=== PATIENT | female | born 1965 | race Caucasian/White ===

== ENCOUNTER 2016-10-14 13:36 | Emergency (ER) | payer OTHER ==
[~2016-10-14] VITALS: Ht 167.6 cm; Wt 65.0 kg
[~2016-10-14 13:36] MED LIST: BCPILLS PO; FEXO180T PO; MELO7.5T7 PO; NSNN50; OLOP0.1S2 OPB; PANT40TA PO; SERT100T PO; SULFACETAMIDE 10% TOP
[2016-10-14 13:42] VITALS: Ht 167.6 cm; Wt 65.0 kg
[2016-10-14] MEDS ORDERED: ONDANSETRON INJ 2 MG/ML 2 ML VIAL ONE (14:02)
[2016-10-14] MEDS ORDERED: ONDANSETRON INJ 2 MG/ML 2 ML VIAL IV STA (14:18)
[2016-10-14] MEDS ORDERED: SODIUM CHLORIDE 0.9% 1000ML 1,000 ML IV STA (14:18)
[2016-10-14 14:23] LABS: BASO % 0.1 %; BASO ABS # 0.01 K/uL (0-0.2); COMPLETE YES; EOS % 0.4 %; HEMATOCRIT 43.2 % (37-47); IG% 0.2 %; LYMPH % 2.3 %; LYMPH ABS # 0.23 K/uL (1.2-3.4); MEAN CELL VOLUME 92.1 fL (80-100); MEAN CORPUSCULAR HEMOGLOBIN 31.8 pg (25-34); MEAN CORPUSCULAR HGB CONC 34.5 g/dl (32-36); MEAN PLATELET VOLUME 8.9 fL (7.4-10.4); MONO % 2.9 %; NEUT % 94.1 %; PLATELET COUNT 163 K/uL (130-400); RED BLOOD COUNT 4.69 M/uL (4.2-5.4)
[2016-10-14 14:44] LABS: BUN/CREATININE RATIO 32.1 (10-20); CALCIUM 8.6 mg/dl (8.5-10.1); CREATININE 0.63 mg/dl (0.60-1.20); POTASSIUM 3.9 mmol/L (3.5-5.1)
[2016-10-14 14:46] LABS: ALB/GLOB RATIO 1.3 (0.9-2)
[2016-10-14] MEDS ORDERED: MAGN400T6 PO (15:00)
[2016-10-14] MEDS ORDERED: KETOROLAC TROMETHAMINE 30 MG/ML VIAL IV STA (15:15)
--- NOTE | 2016-10-14 15:28 | EMERGENCY ROOM VISIT NOTE ---
History Report prepared by Karol: Manuel Gauthier Under the Supervision of: Dr. Ladarius Pantoja D.O. First contact with patient: 14:17 Chief Complaint: VOMITING Stated Complaint: VOMITING, FEVER Nursing Triage Summary: triage note: Pt reports nausea, vomitting, diarrhea and headache. pt reports hx of migraines. History of Present Illness The patient is a 50 year old female who presents to the Emergency Room with complaints of recurrent vomiting that started this morning. The patient also has complaints of nausea, diarrhea, and headaches this morning. She had four episodes of diarrhea in total, and notes that vomiting was her primary complaint. She attributes the headache to dehydration secondary to vomiting. She was given fluids upon arrival to the ED per nursing protocol, and the patient notes that her headache is already improving. She was also given Zofran IV and notes improvement of her nausea. Source of History: patient Onset: this morning Position: other (GI) Quality: other (vomiting) Timing: other (recurrent) Associated Symptoms: + diarrhea, + headache, + nausea Review of Systems See HPI for pertinent positives & negatives. A total of 10 systems reviewed and were otherwise negative. Past Medical & Surgical Medical Problems: (1) Biliary dyskinesia Family History No pertinent family history Social History Smoking Status: Never Smoker Alcohol Use: none Marital Status: Housing Status: lives with family Current/Historical Medications Scheduled Fexofenadine Hcl (Jordana Allergy), 180 MG PO DAILY Meloxicam (Mobic), 7.5 MG PO DAILY PRN Mometasone Furoate (Nasal) (Nasonex), 2 SPRAY NA DAILY Olopatadine Hcl (Patanol 0.1% Oph), 1 DROP OPB DAILY PRN Sertraline Hcl (Zoloft), 200 MG PO QAM [Klaron 10% Ex Lotn], 1 APPLN TOP DAILY Miscellaneous Medications Magnesium Oxide (Mag-Ox), 400 MG PO Allergies Coded Allergies: Latex1 -Allergic Contact Dermititis (Verified Allergy, Mild, RASH, 10/14/16 ) Physical Exam Vital Signs Date Time Temp Pulse Resp B/P Pulse Ox O2 Delivery O2 Flow Rate FiO2 10/14/16 13:42 37.1 106 18 124/79 95 Room Air Physical Exam CONSTITUTIONAL/VITAL SIGNS: Reviewed / noted above. GENERAL: Non-toxic in appearance. INTEGUMENTARY: Warm, dry, and [place]. HEAD: Normocephalic. EYES: without scleral icterus or trauma. ENT/OROPHARYNX: clear and moist. LYMPHADENOPATHY/NECK: Is supple without lymphadenopathy or meningismus. RESPIRATORY: Lungs clear and equal. CARDIOVASCULAR: Regular rate and rhythm. GI/ABDOMEN: Soft and nontender. No organomegaly or pulsatile mass. No rebound or guarding. Normal bowel sounds. EXTREMITIES: Warm and well perfused. BACK: No CVA tenderness. NEUROLOGICAL: Intact without focal deficits. PSYCHIATRIC: normal affect. MUSCULOSKELETAL: Normally developed with good muscle tone. Medical Decision & Procedures Laboratory Results 10/14/16 14:00 Red Blood Count 4.69, Mean Corpuscular Volume 92.1, Mean Corpuscular Hemoglobin 31.8, Mean Corpuscular Hemoglobin Concent 34.5, Mean Platelet Volume 8.9, Neutrophils (%) (Auto) 94.1, Lymphocytes (%) (Auto) 2.3, Monocytes (%) (Auto) 2.9, Eosinophils (%) (Auto) 0.4, Basophils (%) (Auto) 0.1, Neutrophils # (Auto) 9.60, Lymphocytes # (Auto) 0.23, Monocytes # (Auto) 0.30, Eosinophils # (Auto) 0.04, Basophils # (Auto) 0.01 10/14/16 14:00 Test 10/14/16 14:00 White Blood Count 10.20 K/uL (4.8-10.8) Red Blood Count 4.69 M/uL (4.2-5.4) Hemoglobin 14.9 g/dL (12.0-16.0) Hematocrit 43.2 % (37-47) Mean Corpuscular Volume 92.1 fL (80-100) Mean Corpuscular Hemoglobin 31.8 pg (25-34) Mean Corpuscular Hemoglobin Concent 34.5 g/dl (32-36) Platelet Count 163 K/uL (130-400) Mean Platelet Volume 8.9 fL (7.4-10.4) Neutrophils (%) (Auto) 94.1 % Lymphocytes (%) (Auto) 2.3 % Monocytes (%) (Auto) 2.9 % Eosinophils (%) (Auto) 0.4 % Basophils (%) (Auto) 0.1 % Neutrophils # (Auto) 9.60 K/uL (1.4-6.5) Lymphocytes # (Auto) 0.23 K/uL (1.2-3.4) Monocytes # (Auto) 0.30 K/uL (0.11-0.59) Eosinophils # (Auto) 0.04 K/uL (0-0.5) Basophils # (Auto) 0.01 K/uL (0-0.2) RDW Standard Deviation 44.8 fL (36.4-46.3) RDW Coefficient of Variation 13.2 % (11.5-14.5) Immature Granulocyte % (Auto) 0.2 % Immature Granulocyte # (Auto) 0.02 K/uL (0.00-0.02) Anion Gap 9.0 mmol/L (3-11) Est Creatinine Clear Calc Drug Dose 101.1 ml/min Estimated GFR () 122.1 Estimated GFR (Non- 105.3 BUN/Creatinine Ratio 32.1 (10-20) Calcium Level 8.6 mg/dl (8.5-10.1) Total Bilirubin 0.7 mg/dl (0.2-1) Aspartate Amino Transf (AST/SGOT) 22 U/L (15-37) Alanine Aminotransferase (ALT/SGPT) 17 U/L (12-78) Alkaline Phosphatase 61 U/L (45-117) Total Protein 7.4 gm/dl (6.4-8.2) Albumin 4.2 gm/dl (3.4-5.0) Globulin 3.2 gm/dl (2.5-4.0) Albumin/Globulin Ratio 1.3 (0.9-2) Lipase 157 U/L (73-393) Laboratory results as stated above per my review. Medications Administered Medications (Trade) Dose Ordered Sig/Home Route Start Time Stop Time Status Last Admin Dose Admin Ondansetron HCl 4 mg 4 mg STK-MED ONCE .ROUTE 10/14/16 14:02 10/14/16 14:06 DC 10/14/16 14:13 4 MG Sodium Chloride (Nss 1000ml) 1,000 ml @ 999 mls/hr Q1H1M STAT IV 10/14/16 14:18 10/14/16 15:18 DC 10/14/16 14:23 999 MLS/HR Ondansetron HCl (Zofran Inj) 4 mg NOW STAT IV 10/14/16 14:18 10/14/16 14:19 DC 10/14/16 14:18 4 MG Ketorolac Tromethamine (Toradol Inj) 30 mg NOW STAT IV 10/14/16 15:15 10/14/16 15:17 DC 10/14/16 15:21 30 MG Prochlorperazine Edisylate (Compazine Inj) 10 mg NOW STAT IV 10/14/16 17:02 10/14/16 17:03 DC 10/14/16 17:09 10 MG ED Course 1418: Zofran 4 mg IV, NSS 1000 ml @ 999 mls/hr. 1420: Previous medical records were reviewed. The patient was evaluated in room C9. A complete history and physical examination was performed. 1515: Toradol 30 mg IV. 1530: Discussed the treatment plan with the patient. She verbalized agreement. 1702: Compazine 10 mg IV. 1712: Morphine Sulfate 4 mg IV ordered but refused by the patient. 1715: The patient is ready for discharge. Medical Decision Differential diagnosis: Etiologies such as gastroenteritis, food borne illness, infections, appendicitis , diverticulitis, inflammatory bowel disease, obstruction, GI bleed, biliary pathology, as well as others were entertained. This is a 50-year-old female who presents to the ED with a chief complaint of nausea, vomiting and diarrhea. The patient states that her symptoms started this morning. She's had multiple episodes of both. She denies any focal abdominal pains. She denies chest pains or shortness of breath. 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 The patient does report a headache associated with her symptoms but this seems to be improving with IV fluids. Her exam was unremarkable. CBC is normal. The BUN is 20. Complete metabolic panel was otherwise unremarkable. The patient was treated with IV fluids, IV Zofran as well as IV Toradol. She was told the results. Her symptoms did improve some during her stay. She is felt to be stable for discharge. The patient's departure was delayed and she developed additional symptoms including some increased epigastric abdominal pain. She was given IV Compazine for additional nausea and also IV morphine for pain. She does have Zofran ODT at home. Impression Primary Impression: Nausea, vomiting, and diarrhea Additional Impressions: Dehydration Headache Scribe Attestation The scribe's documentation has been prepared under my direction and personally reviewed by me in its entirety. I confirm that the note above accurately reflects all work, treatment, procedures, and medical decision making performed by me. Departure Information Dispostion Home / Self-Care Referrals No Doctor, Assigned (PCP) Forms HOME CARE DOCUMENTATION FORM, IMPORTANT VISIT INFORMATION Patient Instructions ED Diet Vomiting Diarrhea, My [facility] Additional Instructions Follow-up with your doctor for further care and evaluation in 1-4 days if symptoms persist. Return to the emergency department for worsening or new symptoms or any concerns. You have been examined and treated today on an emergency basis only. This is not a substitute for, or an effort to provide, complete comprehensive medical care. It is impossible to recognize and treat all injuries or illnesses in a single emergency department visit. It is therefore important that you follow up closely with your doctor. Call as soon as possible for an appointment. Problem Qualifiers
[2016-10-14] MEDS ORDERED: PROCHLORPERAZINE 5 MG/ML 2 ML VIAL IV STA (17:02)
[2016-10-14] MEDS ORDERED: MoRPHine SULFATE 4 MG/ML 1 ML CARP\\VIAL IV STA (17:12)
[2016-10-14 18:07] VITALS: BP 124/79; PULSE 106; TEMP 37.1; O2SAT 95
== END 2016-10-14 18:08 | disposition home or self-care (01) ==
LOC: C.EDB 13:38 → C.EDC 18:08
DX: R11.10 Vomiting, unspecified (principal); R19.7 Diarrhea, unspecified; E86.0 Dehydration; R51 Headache; K82.8 Other specified diseases of gallbladder; Z79.899 Other long term (current) drug therapy

== ENCOUNTER → 2016-11-17 | Outpatient (CLI) | payer OTHER ==
[~2016-11-17] MED LIST changes: -BCPILLS PO; +MAGN400T6 PO; -OLOP0.1S2 OPB; +OLOP0.1S3 OPB; -PANT40TA PO
--- NOTE | 2016-11-17 16:39 | MAMMOGRAPHY REPORT ---
BILATERAL DIGITAL SCREENING MAMMOGRAM TOMOSYNTHESIS WITH CAD: 11/17/2016 CLINICAL HISTORY: Routine screening. Patient has no complaints. TECHNIQUE: Breast tomosynthesis in addition to standard 2D mammography was performed. Current study was also evaluated with a Computer Aided Detection (CAD) system. COMPARISON: Comparison is made to exams dated: 11/13/2015 mammogram, 10/24/2014 mammogram, 10/18/2013 mammogram, 10/05/2012 mammogram, 09/23/2011 mammogram, and 09/10/2010 mammogram - [facility]. BREAST COMPOSITION: The tissue of both breasts is heterogeneously dense, which may obscure small ma sses. FINDINGS: No suspicious masses, calcifications, or areas of architectural distortion are noted in e ither breast. There has been no significant interval change compared to prior exams. IMPRESSION: ACR BI-RADS CATEGORY 1: NEGATIVE There is no mammographic evidence of malignancy. A 1 year screening mammogram is recommended. The p atient will receive written notification of the results. Approximately 10% of breast cancers are not detected with mammography. A negative mammographic repor t should not delay biopsy if a clinically suggestive mass is present. Radhika Joseph M.D. ah/:11/17/2016 15:23:38 Occupational Health Physician: Zeferino KIMBROUGH(R)(M), [facility] letter sent: Normal 1/2 BI-RADS Code: ACR BI-RADS Category 1: Negative
== END | disposition home or self-care (01) ==
LOC: C.MAMM 13:44
PROVIDERS: ATTEND Family Medicine
DX: Z12.31 Encounter for screening mammogram for malignant neoplasm of breast (principal); Z91.040 Latex allergy status

== ENCOUNTER → 2017-11-21 | Outpatient (CLI) | payer OTHER ==
--- NOTE | 2017-11-22 07:40 | MAMMOGRAPHY REPORT ---
BILATERAL DIGITAL SCREENING MAMMOGRAM TOMOSYNTHESIS WITH CAD: 11/21/2017 CLINICAL HISTORY: Routine screening. TECHNIQUE: Breast tomosynthesis in addition to standard 2D mammography was performed. Current study was also evaluated with a Computer Aided Detection (CAD) system. COMPARISON: Comparison is made to exams dated: 11/17/2016 mammogram, 11/13/2015 mammogram, 10/24/2014 m ammogram, 10/18/2013 mammogram, 10/05/2012 mammogram, and 09/23/2011 mammogram - [facility]. BREAST COMPOSITION: The tissue of both breasts is heterogeneously dense, which may obscure small mas ses. FINDINGS: The parenchymal pattern is unchanged. No developing mass, architectural distortion or clus ter of suspicious microcalcifications is seen in either breast. IMPRESSION: ACR BI-RADS CATEGORY 2: BENIGN There is no mammographic evidence of malignancy. A 1 year screening mammogram is recommended. The pa tient will receive written notification of the results. Approximately 10% of breast cancers are not detected with mammography. A negative mammographic report should not delay biopsy if a clinically suggestive mass is present. Alyssa Chung M.D. ay/:11/21/2017 15:18:37 Programmer Analyst: Zeferino KIMBROUGH(Rosa)(Gaurav), [facility] letter sent: Normal 1/2 BI-RADS Code: ACR BI-RADS Category 2: Benign
== END | disposition home or self-care (01) ==
LOC: C.MAMM 13:40
PROVIDERS: ATTEND Internal Medicine
DX: Z12.31 Encounter for screening mammogram for malignant neoplasm of breast (principal)